=== PATIENT | female | born 1980 | race Caucasian/White ===

== ENCOUNTER 2017-03-20 06:20 | Day surgery (SDC) | payer OTHER ==
[~2017-03-20] VITALS: Ht 157.5 cm; Wt 77.1 kg
[~2017-03-20 06:20] MED LIST: ACIDOPHILUS1 CA2 PO; AMOXICILLIN875 MG PO; COL100 PO; NORCO1 TA2 PO
[2017-03-20 06:29] VITALS: BP 139/84
[2017-03-20 07:10] LABS: BASOPHIL % 0.6 % (0-2); PLATELET COUNT 473 x10^3mcL (130-400); RED CELL DISTRIBUTION WIDTH 12.9 % (11.5-14.5)
[2017-03-20 07:14] LABS: CALCIUM 8.5 mg/dL (8.5-10.1); CARBON DIOXIDE 26.6 mmol/L (21-32); CHLORIDE SERUM 104 mmol/L (98-107); CREATININE SERUM 0.8 mg/dL (0.6-1.0); GFR1 > 60 mL/min; GLUCOSE SERUM 115 mg/dL (74-106); POTASSIUM SERUM 3.9 mmol/L (3.5-5.1); SODIUM SERUM 138 mmol/L (136-145)
[2017-03-20 09:36] VITALS: BP 109/69
== END 2017-03-20 09:30 | disposition home or self-care (01) ==
LOC: GI 06:20 → OR 07:30 → GI 09:30
PROVIDERS: Internal Medicine Gastroenterology
PROC: 0F798ZZ Dilation of Common Bile Duct, Via Natural or Artificial Opening Endoscopic (ICD-10-PCS; principal; 2017-03-20 07:30)
DX: Z46.6 Encounter for fitting and adjustment of urinary device (principal); E66.01 Morbid (severe) obesity due to excess calories; Z68.35 Body mass index [BMI] 35.0-35.9, adult
CPT/HCPCS: 43260; C1769; J2175; J2250; J2405; J2704; J3010; J7120; Q9967